=== PATIENT | female | born 1940 | race Caucasian/White ===

== ENCOUNTER 2018-09-06 03:03 | Emergency (ER) | payer MEDICARE, OTHER ==
[~2018-09-06] VITALS: Ht 165.1 cm; Wt 81.6 kg
[~2018-09-06 03:03] MED LIST: AMLO-512 PO; BUSP10TA23 PO; MIRT30 PO; PROP10TA10 PO; QUET100T PO; QUET200T PO
[2018-09-06] MEDS ORDERED: FLUO-125 PO (03:19)
[2018-09-06] MEDS ORDERED: FURO20TA4 PO (03:19)
[2018-09-06] MEDS ORDERED: DIVA125C PO (03:19)
[2018-09-06] MEDS ORDERED: DONE10TA36 PO (03:19)
[2018-09-06] MEDS ORDERED: LEVO25TA9 PO (03:19)
[2018-09-06] MEDS ORDERED: TRIA10PO3 MC (03:19)
[2018-09-06] MEDS ORDERED: LOSA25TA2 PO (03:19)
[2018-09-06] MEDS ORDERED: MIRT15TA PO (03:19)
[2018-09-06] MEDS ORDERED: ASPI81TA39 PO (03:19)
[2018-09-06] MEDS ORDERED: ALBU8HFA IH (03:19)
[2018-09-06] MEDS ORDERED: ACETAMINOPHEN 325 MG TABLET PO ONE (03:30)
[2018-09-06] MEDS ORDERED: CEPHALEXIN MONOHYDRATE 500 MG CAPSULE PO ONE (04:30)
[2018-09-06 04:47] VITALS: BP 112/79
[2018-09-06 05:07] LABS: APPEARANCE,URINE CLOUDY (CLEAR); BILIRUBIN,URINE NEGATIVE (NEGATIVE); GLUCOSE, URINE (UA) NEGATIVE (NEGATIVE); KETONES,URINE NEGATIVE (NEGATIVE); LEUKOCYTE ESTERASE ,URINE LARGE (NEGATIVE); NITRATE,URINE POSITIVE (NEGATIVE); OCCULT BLOOD,URINE SMALL (NEGATIVE); PROTEIN,URINE TRACE (NEGATIVE); UROBILINOGEN,URINE 0.2 mg/dL (<=1.0)
[2018-09-06 05:15] LABS: BACTERIA,URINE Moderate /HPF (None Seen); WBC,URINE >100 /HPF (0-5)
[2018-09-06 05:16] LABS: SQUAMOUS EPITHELIAL CELL,UR Few /LPF (None Seen)
== END 2018-09-06 05:18 | disposition home or self-care (01) ==
LOC: EMS 03:07
DX: N39.0 Urinary tract infection, site not specified (principal); I10 Essential (primary) hypertension; F20.9 Schizophrenia, unspecified; Z79.82 Long term (current) use of aspirin; Z79.899 Other long term (current) drug therapy
CPT/HCPCS: 87086